=== PATIENT | female | born 1995 | race American Indian/Alaskan Native ===

== ENCOUNTER 2017-09-11 00:16 | Emergency (ER) | payer SELFPAY ==
[2017-09-11 00:43] LABS: Basophils % (Auto) 0.6 % (0.0-1.8); Eosinophils % (Auto) 1.1 % (0.0-4.3); Hematocrit 36.1 % (30.3-42.9); Hemoglobin 12.2 gm/dl (10.1-14.3); Mean Corpuscular HGB Conc 34 % (30-34); Mean Corpuscular Hemoglobin 29 pg (28-32); Mean Corpuscular Volume 87 fl (79-97); Platelet Count 333 K/mm3 (140-440); Red Blood Count 4.17 M/mm3 (3.65-5.03); Red Cell Distribution Width 14.1 % (13.2-15.2); White Blood Count 6.6 K/mm3 (4.5-11.0)
[2017-09-11 01:11] LABS: Alanine Aminotransferase 10 units/L (7-56); Albumin 4.5 g/dL (3.9-5); Albumin/Globulin Ratio 1.3 %; Alkaline Phosphatase 76 units/L (35-129); Anion Gap 19 mmol/L; BUN/Creatinine Ratio 25; Blood Urea Nitrogen 15 mg/dL (7-17); Calcium 9.8 mg/dL (8.4-10.2); Carbon Dioxide 24 mmol/L (22-30); Chloride 100.3 mmol/L (98-107); Glucose 75 mg/dL (65-100); Lipase 43 units/L (13-60); Sodium 139 mmol/L (137-145)
[2017-09-11 01:50] LABS: Bacteria,Urine 1+ /HPF (Negative); Bilirubin,Urine NEG (Negative); Blood,Urine SM (Negative); Ketones,Urine NEG (Negative); Leukocyte Esterase,Urine LG (Negative); Mucus,Urine 1+ /HPF; Nitrite,Urine POS (Negative); Urobilinogen,Urine < 2.0 mg/dL (<2.0)
[2017-09-11] MEDS ORDERED: ROCEPHIN IM ONE (09:25)
[2017-09-11] MEDS ORDERED: XYLOCAINE 1% MPF 5 mL INFILTRATI ONE (09:25)
--- NOTE | 2017-09-11 09:25 | Emergency Department Report ---
ED General Adult HPI - General Chief complaint: Urogenital-Female Stated complaint: DISCHARGE, BACK PAIN Time Seen by Provider: 09/11/17 09:24 Source: patient Mode of arrival: Ambulatory Limitations: No Limitations - History of Present Illness Initial comments: Patient complains of dysuria for more than a month. She said she was recently incarcerated. She does not complain of discharge fever or nausea or vomiting. She has had some intermittent the lower abdominal pain. She denies back pain. She states she has not seen a physician prior. She states that she is had urinary tract infections in the past but has not been on antibiotics recently. -: Gradual, month(s) Location: abdomen (occasional suprapubic) Severity scale (0 -10): 5 Quality: aching Consistency: intermittent, now resolved Improves with: none Worsens with: none Associated Symptoms: denies other symptoms Treatments Prior to Arrival: none - Related Data Previous Rx's Medication Instructions Recorded Last Taken Type metroNIDAZOLE [Flagyl TAB] 500 mg PO Q12HR #14 tab 06/17/16 Unknown Rx Nitrofurantoin Monohyd/M-Cryst 100 mg PO BID #20 capsule 09/11/17 Unknown Rx [Macrobid 100 mg Capsule] Allergies Allergy/AdvReac Type Severity Reaction Status Date / Time No Known Allergies Allergy Verified 02/14/16 14:13 ED Review of Systems ROS: Stated complaint: DISCHARGE, BACK PAIN Other details as noted in HPI Constitutional: denies: chills, fever Eyes: denies: eye pain, eye discharge, vision change ENT: denies: ear pain, throat pain Respiratory: denies: cough, shortness of breath, wheezing Cardiovascular: denies: chest pain, palpitations Endocrine: no symptoms reported Gastrointestinal: abdominal pain (intermittently). denies: nausea, vomiting, diarrhea Genitourinary: denies: urgency, dysuria, discharge Musculoskeletal: denies: back pain, joint swelling, arthralgia Skin: denies: rash, lesions Neurological: denies: headache, weakness, paresthesias Psychiatric: denies: anxiety, depression Hematological/Lymphatic: denies: easy bleeding, easy bruising ED Past Medical Hx - Past Medical History Previous Medical History?: Yes Additional medical history: Oligomenorrhea - Surgical History Past Surgical History?: No - Social History Smoking Status: Never Smoker Substance Use Type: Marijuana - Medications Home Medications: Home Medications Medication Instructions Recorded Confirmed Last Taken Type metroNIDAZOLE [Flagyl TAB] 500 mg PO Q12HR #14 tab 06/17/16 Unknown Rx Nitrofurantoin Monohyd/M-Cryst 100 mg PO BID #20 capsule 09/11/17 Unknown Rx [Macrobid 100 mg Capsule] ED Physical Exam - General Limitations: No Limitations General appearance: alert, in no apparent distress - Head Head exam: Present: atraumatic, normocephalic - Eye Eye exam: Present: normal appearance - ENT ENT exam: Present: mucous membranes moist - Neck Neck exam: Present: normal inspection - Respiratory Respiratory exam: Present: normal lung sounds bilaterally. Absent: respiratory distress - Cardiovascular Cardiovascular Exam: Present: regular rate, normal rhythm. Absent: systolic murmur, diastolic murmur, rubs, gallop - GI/Abdominal GI/Abdominal exam: Present: soft, normal bowel sounds. Absent: distended, tenderness, guarding, rebound, rigid - Extremities Exam Extremities exam: Present: normal inspection - Back Exam Back exam: Present: normal inspection - Neurological Exam Neurological exam: Present: alert, oriented X3, CN II-XII intact. Absent: motor sensory deficit - Psychiatric Psychiatric exam: Present: normal affect, normal mood - Skin Skin exam: Present: warm, dry, intact, normal color. Absent: rash ED Course Vital Signs 09/11/17 09/11/17 09/11/17 00:20 04:34 07:42 Temperature 98.2 F 98.4 F Pulse Rate 86 62 Respiratory 18 18 18 Rate Blood Pressure 108/71 121/72 O2 Sat by Pulse 99 100 100 Oximetry ED Medical Decision Making - Lab Data Result diagrams: 09/11/17 00:29 09/11/17 00:29 Laboratory Results - last 24 hr 09/11/17 09/11/17 09/11/17 00:29 00:29 00:29 WBC 6.6 RBC 4.17 Hgb 12.2 Hct 36.1 MCV 87 MCH 29 MCHC 34 RDW 14.1 Plt Count 333 Lymph % (Auto) 25.2 [place] % (Auto) 9.9 H Eos % (Auto) 1.1 Baso % (Auto) 0.6 Lymph # 1.7 [place] # 0.7 Eos # 0.1 Baso # 0.0 Seg Neutrophils % 63.2 Seg Neutrophils # 4.2 Sodium 139 Potassium 4.0 Chloride 100.3 Carbon Dioxide 24 Anion Gap 19 BUN 15 Creatinine 0.6 L Estimated GFR > 60 BUN/Creatinine Ratio 25 Glucose 75 Calcium 9.8 Total Bilirubin 0.20 AST 16 ALT 10 Alkaline Phosphatase 76 Total Protein 8.0 Albumin 4.5 Albumin/Globulin Ratio 1.3 Lipase 43 HCG, Qual Negative Urine Color Urine Turbidity Urine pH Ur Specific [place] Urine Protein Urine Glucose (UA) Urine Ketones Urine Blood Urine Nitrite Urine Bilirubin Urine Urobilinogen Ur Leukocyte Esterase Urine WBC (Auto) Urine RBC (Auto) U Epithel Cells (Auto) Urine Bacteria (Auto) Urine WBC Clumps Urine Mucus 09/11/17 01:26 WBC RBC Hgb Hct MCV MCH MCHC RDW Plt Count Lymph % (Auto) [place] % (Auto) Eos % (Auto) Baso % (Auto) Lymph # [place] # Eos # Baso # Seg Neutrophils % Seg Neutrophils # Sodium Potassium Chloride Carbon Dioxide Anion Gap BUN Creatinine Estimated GFR BUN/Creatinine Ratio Glucose Calcium Total Bilirubin AST ALT Alkaline Phosphatase Total Protein Albumin Albumin/Globulin Ratio Lipase HCG, Qual Urine Color Yellow Urine Turbidity Clear Urine pH 5.0 Ur Specific [place] 1.018 Urine Protein 30 mg/dl Urine Glucose (UA) Neg Urine Ketones Neg Urine Blood Sm Urine Nitrite Pos Urine Bilirubin Neg Urine Urobilinogen < 2.0 Ur Leukocyte Esterase Lg Urine WBC (Auto) 157.0 H Urine RBC (Auto) 7.0 U Epithel Cells (Auto) < 1.0 Urine Bacteria (Auto) 1+ Urine WBC Clumps 3+ Urine Mucus 1+ Critical care attestation.: If time is entered above; I have spent that time in minutes in the direct care of this critically ill patient, excluding procedure time. ED Disposition Clinical Impression: Acute cystitis Qualifiers: Hematuria presence: without hematuria Qualified Code(s): N30.00 - Acute cystitis without hematuria Disposition: TO HOME OR SELFCARE Is pt being admited?: No Does the pt Need Aspirin: No Condition: Stable Instructions: Urinary Tract Infection in Women (ED) Additional Instructions: Follow-up on your culture in 2-3 days. Rx as directed. Prescriptions: Nitrofurantoin Monohyd/M-Cryst [Macrobid 100 mg Capsule] 100 mg PO BID #20 capsule Referrals: PRIMARY MD ACACIA [Primary Care Provider] - 3-5 Days CAROLYN ALFONSO MD [Staff Physician] - 3-5 Days [facility] [Provider Group] - 2-3 Days Time of Disposition: 10:14
[2017-09-11] MEDS ORDERED: ZITHROMAX PO ONE (10:19)
[2017-09-11 10:28] VITALS: BP 116/68
== END 2017-09-11 10:27 | disposition home or self-care (01) ==
LOC: ED 00:16
DX: N30.00 Acute cystitis without hematuria (principal); F12.10 Cannabis abuse, uncomplicated
CPT/HCPCS: 36415; 80053; 81001; 83690; 84703; 85025; 87076; 87086; 87186; 96372; 99283; J0696

== ENCOUNTER 2017-11-06 22:20 | Emergency (ER) | payer OTHER ==
[2017-11-06 22:43] VITALS: BP 113/76
[2017-11-06 23:59] LABS: Basophils % (Auto) 0.5 % (0.0-1.8); Eosinophils # (Auto) 0.1 K/mm3 (0.0-0.4); Eosinophils % (Auto) 0.9 % (0.0-4.3); Hematocrit 36.2 % (30.3-42.9); Hemoglobin 11.9 gm/dl (10.1-14.3); Lymphocytes # (Auto) 2.4 K/mm3 (1.2-5.4); Lymphocytes % (Auto) 39.3 % (13.4-35.0); Mean Corpuscular HGB Conc 33 % (30-34); Mean Corpuscular Hemoglobin 29 pg (28-32); Mean Corpuscular Volume 90 fl (79-97); Monocytes # (Auto) 0.4 K/mm3 (0.0-0.8); Monocytes % (Auto) 6.9 % (0.0-7.3); Platelet Count 298 K/mm3 (140-440); Red Blood Count 4.05 M/mm3 (3.65-5.03); Red Cell Distribution Width 13.9 % (13.2-15.2)
[2017-11-07 00:22] LABS: Alanine Aminotransferase 9 units/L (7-56); Albumin 4.3 g/dL (3.9-5); BUN/Creatinine Ratio 32; Blood Urea Nitrogen 16 mg/dL (7-17); Calcium 9.6 mg/dL (8.4-10.2); Hemolysis Index 3
== END 2017-11-07 02:00 | disposition left against medical advice (07) ==
LOC: ED 22:20
DX: R11.2 Nausea with vomiting, unspecified (principal); Z53.21 Procedure and treatment not carried out due to patient leaving prior to being seen by health care provider
CPT/HCPCS: 36415; 80053; 85025

== ENCOUNTER 2021-10-11 20:37 | Emergency (ER) | payer SELFPAY ==
[2021-10-11 20:45] VITALS: BP 109/58
--- NOTE | 2021-10-11 22:42 | Emergency Department Report ---
ED Female HPI - General Chief complaint: Urogenital-Female Stated complaint: DISCHARGE AND ITCH Time Seen by Provider: 10/11/21 21:35 Source: patient Mode of arrival: Ambulatory Limitations: No Limitations - History of Present Illness MD Complaint: vaginal discharge - Related Data Previous Rx's Medication Instructions Recorded Last Taken Type metroNIDAZOLE [Flagyl TAB] 500 mg PO Q12HR #14 tab 06/17/16 Unknown Rx Nitrofurantoin Monohyd/M-Cryst 100 mg PO BID #20 capsule 09/11/17 Unknown Rx [Macrobid 100 mg Capsule] Acetaminophen/Codeine [Tylenol 1 tab PO Q6H PRN #10 tab 06/03/19 Unknown Rx /Codeine # 3 tab] Amoxicillin [Trimox CAP] 500 mg PO Q8H #21 capsule 06/03/19 Unknown Rx Naproxen [Naprosyn] 500 mg PO BID PRN #20 tablet 06/03/19 Unknown Rx Nystas/Diphen/Xyl Visc/Mylanta 15 ml MM Q4H #100 ml 06/03/19 Unknown Rx [Magic Mouthwash] Allergies Allergy/AdvReac Type Severity Reaction Status Date / Time No Known Allergies Allergy Verified 02/14/16 14:13 ED Review of Systems ROS: Stated complaint: DISCHARGE AND ITCH Other details as noted in HPI ED Past Medical Hx - Past Medical History Previous Medical History?: Yes Additional medical history: Oligomenorrhea - Surgical History Past Surgical History?: No - Social History Smoking Status: Never Smoker Substance Use Type: Alcohol, Marijuana - Medications Home Medications: Home Medications Medication Instructions Recorded Confirmed Last Taken Type metroNIDAZOLE [Flagyl TAB] 500 mg PO Q12HR #14 tab 06/17/16 Unknown Rx Nitrofurantoin Monohyd/M-Cryst 100 mg PO BID #20 capsule 09/11/17 Unknown Rx [Macrobid 100 mg Capsule] Acetaminophen/Codeine [Tylenol 1 tab PO Q6H PRN #10 tab 06/03/19 Unknown Rx /Codeine # 3 tab] Amoxicillin [Trimox CAP] 500 mg PO Q8H #21 capsule 06/03/19 Unknown Rx Naproxen [Naprosyn] 500 mg PO BID PRN #20 tablet 06/03/19 Unknown Rx Nystas/Diphen/Xyl Visc/Mylanta 15 ml MM Q4H #100 ml 06/03/19 Unknown Rx [Magic Mouthwash] ED Physical Exam - General Limitations: No Limitations ED Course Vital Signs 10/11/21 20:44 Temperature 98 F Pulse Rate 73 Respiratory 16 Rate Blood Pressure 109/58 [Right] O2 Sat by Pulse 100 Oximetry Critical care attestation.: If time is entered above; I have spent that time in minutes in the direct care of this critically ill patient, excluding procedure time. ED Disposition Condition: Stable Referrals: PRIMARY CARE, [Primary Care Provider] - 3-5 Days
[2021-10-11 22:58] LABS: Bilirubin,Urine NEG (Negative); Blood,Urine NEG (Negative); Color,Urine Yellow (Yellow); Mucus,Urine 1+ /HPF; Protein,Urine <15 mg/dL mg/dL (Negative); Urobilinogen,Urine < 2.0 mg/dL (<2.0)
[2021-10-11 23:01] LABS: HCG Qualitative,Urine Negative (Negative)
== END 2021-10-11 23:54 | disposition home or self-care (01) ==
LOC: ED 20:37
DX: N89.8 Other specified noninflammatory disorders of vagina (principal)
CPT/HCPCS: 81001; 81025; 87210; 87591; 99283

== ENCOUNTER 2022-03-17 15:23 | Emergency (ER) | payer SELFPAY ==
[2022-03-17 15:50] VITALS: BP 136/90
[2022-03-17] MEDS ORDERED: CYCLOBENZAPRINE 10 MG TAB PO ONE (16:31)
[2022-03-17] MEDS ORDERED: KETOROLAC 10 MG TAB PO ONE (16:31)
[2022-03-17] MEDS ORDERED: oxyCODONE /ACETAMINOPHEN 5-325MG TAB PO ONE ×2 (16:31→17:24)
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
== END 2022-03-17 17:52 | disposition home or self-care (01) ==
LOC: ED 15:23
DX: S82.141A Displaced bicondylar fracture of right tibia, initial encounter for closed fracture (principal); M54.2 Cervicalgia; F10.20 Alcohol dependence, uncomplicated; F12.90 Cannabis use, unspecified, uncomplicated; V89.2XXA Person injured in unspecified motor-vehicle accident, traffic, initial encounter; Y93.89 Activity, other specified; Y92.89 Other specified places as the place of occurrence of the external cause; Y99.8 Other external cause status
CPT/HCPCS: 99283; 99284

== ENCOUNTER 2022-04-29 00:45 | Emergency (ER) | payer SELFPAY ==
[2022-04-29] MEDS ORDERED: TETANUS,DIPH,PERTUSS(ACELL) VACCINE 0.5 ML SYRINGE IM ONE (08:52)
[2022-04-29] MEDS ORDERED: oxyCODONE /ACETAMINOPHEN 5-325MG TAB PO ONE (08:53)
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
--- NOTE | 2022-04-29 11:17 | Emergency Department Report ---
- General Chief Complaint: Laceration/Recheck/Suture Stated Complaint: LACERATION Time Seen by Provider: 04/29/22 08:52 Source: patient, EMS Mode of arrival: Ambulatory Limitations: No Limitations - History of Present Illness Initial Comments: 26-year-old black female with no past medical history presents to the emergency department for evaluation of right arm laceration. She states that last night, she was banging on her window trying to open up and the glass broke and her arm went through and shattered glass. She presents with large deep laceration to posterior right forearm. She states that she does not know when she had her last tetanus shot. -: Sudden, This morning Extremity Location: Right: Forearm Place: home Patient Tetanus UTD: No Context: accidental Associated Symptoms: pain Treatments Prior to Arrival: bandage - Related Data Previous Rx's Medication Instructions Recorded Last Taken Type metroNIDAZOLE [Flagyl TAB] 500 mg PO Q12HR #14 tab 06/17/16 Unknown Rx Nitrofurantoin Monohyd/M-Cryst 100 mg PO BID #20 capsule 09/11/17 Unknown Rx [Macrobid 100 mg Capsule] Acetaminophen/Codeine [Tylenol 1 tab PO Q6H PRN #10 tab 06/03/19 Unknown Rx /Codeine # 3 tab] Amoxicillin [Trimox CAP] 500 mg PO Q8H #21 capsule 06/03/19 Unknown Rx Naproxen [Naprosyn] 500 mg PO BID PRN #20 tablet 06/03/19 Unknown Rx Nystas/Diphen/Xyl Visc/Mylanta 15 ml MM Q4H #100 ml 06/03/19 Unknown Rx [Magic Mouthwash] Doxycycline Hyclate [Doxycycline 100 mg PO Q12HR #20 tablet 10/11/21 Unknown Rx Hyclate TAB] metroNIDAZOLE [Flagyl] 2,000 mg PO ONCE #4 tablet 10/11/21 Unknown Rx Acetaminophen/Codeine [Tylenol 1 tab PO Q6H PRN #14 tab 03/17/22 Unknown Rx /Codeine # 3 tab] Cyclobenzaprine [Flexeril] 10 mg PO TID PRN #30 tab 03/17/22 Unknown Rx Naproxen [Naprosyn] 500 mg PO BID #14 tab 03/17/22 Unknown Rx Ketorolac [Toradol] 10 mg PO Q6H PRN #12 tab 04/29/22 Unknown Rx cephALEXin [Keflex] 500 mg PO BID 7 Days #14 cap 04/29/22 Unknown Rx Allergies Allergy/AdvReac Type Severity Reaction Status Date / Time No Known Allergies Allergy Verified 04/29/22 02:58 ED Review of Systems ROS: Stated complaint: LACERATION Other details as noted in HPI Comment: All other systems reviewed and negative Constitutional: denies: chills, fever Respiratory: denies: shortness of breath Cardiovascular: denies: chest pain, palpitations Gastrointestinal: denies: abdominal pain, nausea, vomiting Musculoskeletal: denies: back pain Skin: denies: rash, lesions Neurological: denies: headache, weakness ED Past Medical Hx - Past Medical History Previous Medical History?: No Additional medical history: Oligomenorrhea - Surgical History Past Surgical History?: No - Social History Smoking Status: Never Smoker Substance Use Type: None - Medications Home Medications: Home Medications Medication Instructions Recorded Confirmed Last Taken Type metroNIDAZOLE [Flagyl TAB] 500 mg PO Q12HR #14 tab 06/17/16 Unknown Rx Nitrofurantoin Monohyd/M-Cryst 100 mg PO BID #20 capsule 09/11/17 Unknown Rx [Macrobid 100 mg Capsule] Acetaminophen/Codeine [Tylenol 1 tab PO Q6H PRN #10 tab 06/03/19 Unknown Rx /Codeine # 3 tab] Amoxicillin [Trimox CAP] 500 mg PO Q8H #21 capsule 06/03/19 Unknown Rx Naproxen [Naprosyn] 500 mg PO BID PRN #20 tablet 06/03/19 Unknown Rx Nystas/Diphen/Xyl Visc/Mylanta 15 ml MM Q4H #100 ml 06/03/19 Unknown Rx [Magic Mouthwash] Doxycycline Hyclate [Doxycycline 100 mg PO Q12HR #20 tablet 10/11/21 Unknown Rx Hyclate TAB] metroNIDAZOLE [Flagyl] 2,000 mg PO ONCE #4 tablet 10/11/21 Unknown Rx Acetaminophen/Codeine [Tylenol 1 tab PO Q6H PRN #14 tab 03/17/22 Unknown Rx /Codeine # 3 tab] Cyclobenzaprine [Flexeril] 10 mg PO TID PRN #30 tab 03/17/22 Unknown Rx Naproxen [Naprosyn] 500 mg PO BID #14 tab 03/17/22 Unknown Rx Ketorolac [Toradol] 10 mg PO Q6H PRN #12 tab 04/29/22 Unknown Rx cephALEXin [Keflex] 500 mg PO BID 7 Days #14 cap 04/29/22 Unknown Rx ED Physical Exam - General Limitations: No Limitations General appearance: alert, in no apparent distress - Head Head exam: Present: atraumatic, normocephalic - Eye Eye exam: Present: normal appearance. Absent: conjunctival injection - Neck Neck exam: Present: normal inspection, full ROM. Absent: lymphadenopathy - Respiratory Respiratory exam: Absent: respiratory distress - Cardiovascular Cardiovascular Exam: Present: regular rate - GI/Abdominal GI/Abdominal exam: Absent: distended, tenderness - Expanded Upper Extremity Exam Right Forearm Wrist exam: Present: full ROM, tenderness, swelling, laceration. Absent: normal inspection, deformity, dislocation, erythema, tenderness over anatomical snuff box, pain with axial thumb loading Hand Wrist exam: Present: normal inspection Neuro motor exam: Present: wrist extension intact, thumb opposition intact, thumb IP flexion intact, thumb adduction intact, fingers 2-5 abduction intact Vascular: Present: normal capillary refill, radial pulse. Absent: vascular compromise, Pallo, pulse deficit radial art - Back Exam Back exam: Present: normal inspection - Neurological Exam Neurological exam: Present: alert, oriented X3 - Psychiatric Psychiatric exam: Present: normal affect, normal mood - Skin Skin exam: Present: warm, dry, intact ED Course Vital Signs 04/29/22 02:55 Temperature 98.7 F Pulse Rate 63 Respiratory 18 Rate Blood Pressure 110/79 [Left] O2 Sat by Pulse 98 Oximetry - Laceration /Wound Repair Right Posterior Arm Wound Location: upper extremity (Right posterior forearm) Wound Length (cm): 7 Wound's Depth, Shape: into muscle, flap Wound Explored: clean Irrigated w/ Saline (ccs): 120 Betadine Prep?: No Anesthesia: Lidocaine w/ Epi Volume Anesthetic (ccs): 10 Wound Repaired With: sutures Suture Size/Type: 3:0, proline Number of Sutures: 13 Layer Closure?: Yes Deep Layer Suture Size/Type: 3:0 (Vicryl) Number Deep Layer Sutures: 4 Sterile Dressing Applied?: Yes ED Medical Decision Making - Radiology Data Radiology results: report reviewed, image reviewed Right forearm x-ray: IMPRESSION: Prominent laceration along the upper forearm noted. No radiopaque foreign body appreciated. - Medical Decision Making 26-year-old black female with no past medical history presents to the emergency department for evaluation of right arm laceration. She states that last night, she was banging on her window trying to open up and the glass broke and her arm went through and shattered glass. She presents with large deep laceration to posterior right forearm. She states that she does not know when she had her last tetanus shot. Right forearm deep laceration with bleeding noted. CMS intact. Right forearm x-ray without foreign body noted. Laceration repaired per my procedure note. Tdap updated. Laceration and deep and patient sat in the waiting room with open wound for several hours prior to repair, so patient will be given Keflex prescription in the event of signs of infection and advised to take only if signs of infection noted. Reviewed signs of infection with patient and when to take medication. Advised patient to monitor sutured area at least once daily and have sutures removed in 10 days. She is advised to follow-up with her primary care provider or in the ER for any worsening symptoms. She verbalized understanding of and agreement with plan of care. Critical care attestation.: If time is entered above; I have spent that time in minutes in the direct care of this critically ill patient, excluding procedure time. ED Disposition Clinical Impression: Laceration of right forearm Qualifiers: Encounter type: initial encounter Qualified Code(s): S51.811A - Laceration without foreign body of right forearm, initial encounter Disposition: HOME / SELF CARE / HOMELESS Is pt being admited?: No Does the pt Need Aspirin: No Condition: Stable Instructions: Sutured Wound Care, [id number] Additional Instructions: Toradol as needed for pain. Take Keflex only if you notice signs of infection including development of fever, swelling, purulent drainage, or red streaks coming from area. Return to the emergency department for evaluation of signs of infection not improved from prescription. Follow-up with primary care provider for further evaluation and management. Have sutures removed in patient. Return to the emergency department as needed. Prescriptions: cephALEXin [Keflex] 500 mg PO BID 7 Days #14 cap Ketorolac [Toradol] 10 mg PO Q6H PRN #12 tab PRN Reason: Pain Referrals: HEENA COATS MD [Staff Physician] - 3-5 Days Time of Disposition: 11:26
[2022-04-29 11:55] VITALS: BP 123/86
== END 2022-04-29 11:55 | disposition home or self-care (01) ==
LOC: ED 00:45
DX: S51.811A Laceration without foreign body of right forearm, initial encounter (principal); X58.XXXA Exposure to other specified factors, initial encounter; Y93.89 Activity, other specified; Y92.89 Other specified places as the place of occurrence of the external cause; Y99.8 Other external cause status
CPT/HCPCS: 90471; 90715; 99283